=== PATIENT | female | born 1950 | race Caucasian/White ===

== ENCOUNTER 2019-07-03 21:26 | Observation (INO) ==
[2019-07-03 22:26] LABS: BASO# 0.05 X1000 (0.0-0.2); BASO% 0.7 % (0.0-0.8); EOS# 0.36 X1000 (0.0-0.7); EOS% 5.2 % (0.0-10.0); HEMATOCRIT 41.7 % (37.0-47.0); HEMOGLOBIN 13.6 g/dL (12.0-16.0); IMM GRAN# 0.02 X1000 (0.0-0.04); IMM GRAN% 0.3 % (0.0-0.5); LYMPH% 34.5 % (20.5-51.1); MCH 30.4 PG (27-31); MCHC 32.6 g/dL (33-37); MCV 93.3 FL (81-99); MONO# 0.54 X1000 (0.11-0.59); MONO% 7.8 % (1.7-9.3); MPV 9.7 FL (7.4-10.4); NEUT# 3.58 X1000 (1.4-6.5); NEUT% 51.5 % (42.2-75.2); PLT 268 X1000 (130-400); RBC 4.47 XMIL (4.2-5.4); RDW 12.7 % (11.5-14.5); WBC 6.95 X1000 (4.8-10.8)
[2019-07-03 22:44] LABS: INR 0.91; PROTIME 12.7 Seconds (11.0-16.0)
[2019-07-03 22:52] LABS: AGAP 9; ALBUMIN 4.5 g/dL (3.5-5.0); ALKALINE PHOSPHATASE 72 U/L (32-104); BUN 11 mg/dL (8-22); CALCIUM 9.1 mg/dL (8.8-10.2); CHLORIDE 105 mmol/L (98-107); CK PROFILE 31 U/L (24-173); COSMO 283; CREATININE 0.8 mg/dL (0.5-0.9); ESTIMATED GFR > 60; GLUCOSE 101 mg/dL (70-104); GOT 14 U/L (10-30); GPT 8 U/L (10-36); POTASSIUM 4.2 mmol/L (3.5-5.1); SODIUM 142 mmol/L (136-145); TCO2 29 mmol/L (25-35); TOTAL PROTEIN 7.1 g/dL (6.3-8.3)
[2019-07-04] MEDS ORDERED: PROTONIX PO ONE (00:52)
[2019-07-04] MEDS ORDERED: PEPCID PO ONE (00:52)
[2019-07-04] MEDS ORDERED: LOVENOX 1 MG/KG SUBQ ONE (00:52)
[2019-07-04] MEDS ORDERED: LOVENOX ONE (01:46)
[2019-07-04] MEDS ORDERED: TYLENOL PO PRN (04:29)
[2019-07-04] MEDS ORDERED: DILAUDID IM PRN (04:29)
[2019-07-04] MEDS ORDERED: TORADOL IV PRN (04:29)
[2019-07-04] MEDS ORDERED: ZOFRAN IV PRN (04:29)
--- NOTE | 2019-07-04 08:13 | Diag Imaging Result Doc PS360 ---
EXAM: CHEST-2 VIEWS - 07/03/2019 HISTORY: cp TECHNIQUE: Chest two views COMPARISON: 10/01/2018 portable chest FINDINGS: Heart size appears the upper range of normal and stable. There are possible COPD changes with slightly hyperexpanded lungs. There is stable left upper lobe granuloma from old granulomatous disease. The lungs otherwise appear clear. There is no pleural effusion or pneumothorax identified. Central venous catheter remains in place. IMPRESSION: Possible COPD changes with slightly hyperexpanded lungs. No other evidence of acute disease. Electronically signed by Angel Zuniga 07/04/2019 8:11 AM
[2019-07-04] MEDS: XANAX PO SCH ×2 (15:07→22:54)
--- NOTE | 2019-07-04 16:12 | Vascular Study Report ---
EXAM: Venous U/S Bilateral Legs - 07/04/2019 HISTORY: CP, SOB, elevated d-dimer, h/o PE TECHNIQUE: Bilateral lower extremity Doppler venous ultrasound COMPARISON: 06/06/2017 FINDINGS: The deep veins of the bilateral lower extremities demonstrate flow and compressibility. There are no filling defects identified. IMPRESSION: No evidence of deep venous thrombosis in either lower extremity. Electronically signed by Angel Zuniga 07/04/2019 4:09 PM
--- NOTE | 2019-07-04 16:20 | HISTORY AND PHYSICAL ---
CHIEF COMPLAINT: Chest pain, shortness of breath, diaphoresis. HISTORY OF PRESENT ILLNESS: This is a 68-year-old female with a prior history of pulmonary embolus, colon and ovarian cancer, who presented to the emergency room complaining of chest pain. She stated the pain first appeared last night about 8 o'clock. It was a stabbing-type pain, she rated it a 10/10. She had some accompanying shortness of breath and diaphoresis. She went to bed, woke up again with the pain, this time she stated it radiated to her back and up into her jaw, therefore, she presented to the emergency room. She was given 3 nitroglycerin and an aspirin via EMS with no change in pain. On arrival to the emergency room, O2 saturation was 95% on 2 L nasal cannula. PAST MEDICAL HISTORY: 1. Colon cancer. 2. Ovarian cancer. 3. Hypertension. 4. Pulmonary embolus. PAST SURGICAL HISTORY: Appendectomy, cholecystectomy, prophylactic bilateral mastectomy, as well as hysterectomy. FAMILY HISTORY: Positive for hypertension. SOCIAL HISTORY: She continues to smoke about a pack a day. She denies any alcohol or illicit drug use. ALLERGIES: Sulfa, which causes swelling. HOME MEDICATIONS: A list will be obtained. REVIEW OF SYSTEMS: Review of systems is discussed with the patient with pertinent positives stated in the HPI. She denied any syncope or dizziness, palpitations, vomiting, any diarrhea, constipation, productive cough, any fevers or chills, black or bloody vomitus or stools. PHYSICAL EXAMINATION: GENERAL: This is a 68-year-old female, who is sitting up on the side of the bed in no distress. VITAL SIGNS: Blood pressure is 160/70 with a heart rate of 59, respirations are 18, temperature is 98.7 degrees with O2 saturations 98% on 2 L nasal cannula. EYES: Pupils are equal, round and reactive to light. EOMs are intact. Sclera are anicteric. HEENT: Head is normocephalic, atraumatic. Mucous membranes are moist. NECK: Supple with trachea midline. No JVD. CARDIOVASCULAR: Regular rate and rhythm. S1 and S2 are appreciated. She has no lower extremity edema. She denies calf tenderness. Peripheral pulses are palpable x4 extremities. PULMONARY: Breath sounds are clear. No increased work of breathing noted. Chest rises and falls symmetric with respiration. Chest wall is nontender to palpation. GASTROINTESTINAL: Abdomen is soft, nontender, nondistended with bowel sounds in all 4 quadrants. NEUROLOGIC: She is alert and oriented x3. SKIN: Warm and dry. LABORATORY: WBC is 6.9 with hemoglobin 13.6, hematocrit 41.7, and platelets of 268,000. D-dimer is 0.56. Sodium 142, potassium 4.2, BUN 11, creatinine 0.8, with a glucose of 101. Troponins have been less than 6 on 3 occasions. Chest x-ray revealed possible COPD changes with slightly hyperexpanded lungs. No evidence of acute disease. ASSESSMENT AND PLAN: 1. Chest pain. Will continue telemetry, continue to trend troponin. 2. Elevated D-dimer. In the setting of the patient having a prior pulmonary embolus with a history of cancer, will obtain a bilateral lower extremity Doppler as well as a CTA pulmonary. Of note, the patient has been off anticoagulation for quite some time. 3. Hypertension. Will continue to trend vital signs and continue home medications. 4. Continued nicotine abuse. I did discuss with the patient the perils of continuing smoking. She will be given written materials. 5. Plan was discussed with Dr. Lozano. Further treatments pending hospital course. Dictated by JOSÉ ANTONIO Montoya for Yrn Lozano MD cc: JOSÉ ANTONIO Montoya MD
[2019-07-04] MEDS: INDERAL PO SCH (20:48)
[2019-07-04] MEDS ORDERED: SEROQUEL PO SCH (21:00)
[2019-07-04] MEDS ORDERED: REMERON SOLTAB PO SCH (21:00)
--- NOTE | 2019-07-05 01:47 | HISTORY AND PHYSICAL ---
ADDENDUM: The patient is a 68-year-old female who presented to the emergency department with chest pain this morning that was initially 10/10. Currently appears resolved. Does have a history of pulmonary emboli. Had a CTA done a week ago. Was having no shortness of breath, no chest pains, no palpitations and no current symptoms. The patient has a known history of hypertension as well as colon cancer and ovarian cancer. Does have an elevated D-dimer although had CT just recently that was before her symptoms started. Therefore, unfortunately, I do feel as though we need to repeat the CTA to rule out emboli. The patient and daughter understand and are ready to continue. cc: Yrn Lozano MD
[2019-07-05 05:36] VITALS: BP 114/57
[2019-07-05] MEDS: XANAX PO SCH ×2 (06:33→14:39)
[2019-07-05] MEDS ORDERED: PROTONIX PO SCH (07:00)
[2019-07-05] MEDS: INDERAL PO SCH (10:11)
--- NOTE | 2019-07-05 13:51 | Diag Imaging Result Doc PS360 ---
EXAM: CT ANGIOGRM PULMONARY ARTERIES INDICATION: h/o PE, elevated ddimer, CP,SOB TECHNIQUE: This exam was performed using automated exposure control, adjustment of mA or kV according to patient size, and/or use of iterative reconstruction technique. COMPARISON: 06/28/2019 FINDINGS: There is no evidence of pulmonary embolism. There is no evidence of aortic dissection or aneurysm. There is no cardiomegaly. There are a few calcified left hilar lymph nodes indicating prior granulomatous disease. There is no evidence of significant mediastinal or hilar lymphadenopathy. There is a left upper lobe calcified granuloma. There are a few scattered tiny noncalcified nodules in both lungs. The largest is seen in the right middle lobe on image 58 of series 5 measuring 4.4 mm. It is stable. This statistically most likely represent noncalcified granulomata. There is mild paraseptal emphysema that is stable. There is very mild and subtle groundglass opacity in the right lower lobe superiorly on image 40 of series 5 as well as fine nodularity. This is stable. It suggests nonspecific very mild pneumonitis. No new airspace consolidations are appreciated. There is no pleural fluid collection and no pneumothorax. IMPRESSION: No evidence of pulmonary embolism. Stable CT chest, otherwise. Electronically signed by Yuval Costello 07/05/2019 1:49 PM
--- NOTE | 2019-07-06 02:42 | DISCHARGE SUMMARY ---
ADMISSION DATE: 07/04/2019 DISCHARGE DATE: 07/05/2019 ADDENDUM: Patient seen and examined by myself. Full note dictated and discussed with nurse practitioner. Patient presented to the hospital with chest pain. This resolved. She did have a stress test within the last 6 months that was normal. She has an elevated D-dimer that was negative for pulmonary emboli or lower extremity DVT. Does have mild pneumonitis on exam. Overall, she is better and therefore will be discharged home. cc: Yrn Lozano MD
--- NOTE | 2019-07-06 04:46 | DISCHARGE SUMMARY ---
ADMISSION DATE: 07/04/2019 DISCHARGE DATE: 07/05/2019 DIAGNOSES: 1. Chest pain, resolved with troponins less than 6 x5. 2. Elevated D-dimer with a CTA pulmonary negative for pulmonary embolus and bilateral lower extremity Doppler negative for deep venous thrombosis. 3. Hypertension. 4. Continued nicotine abuse. DIAGNOSTICS: 1. Chest x-ray revealed COPD with slight hyperexpanded lungs. No evidence of acute disease. 2. Bilateral lower extremity Doppler, no evidence of DVT in either lower extremity. 3. Pulmonary arteriogram revealed no evidence of pulmonary embolism. HOSPITAL COURSE: Ms. Garcia presented to the emergency room complaining of chest pain, shortness of breath and diaphoresis which has resolved. She was ruled out by EKG and troponins. She was found to have an elevated D-dimer. CTA pulmonary and DVT were both performed and they were negative for pulmonary embolus or lower extremity Doppler. Her chest pain resolved and did not recur. DISCHARGE VITAL SIGNS: Blood pressure is 114/57 with heart rate 57, respirations 18, temperature 97.3 degrees oral with O2 saturations that are 97% on room air. DISCHARGE PHYSICAL EXAMINATION: Cardiovascular: Regular rate and rhythm. S1 and S2 appreciated. Pulmonary: Breath sounds are clear with no increased work of breathing noted. Chest rises and falls symmetric with respiration. Chest wall is nontender to palpation. Gastrointestinal: Abdomen is soft, nontender, nondistended with bowel sounds in all 4 quadrants. Neurologic: Alert and oriented x3. DISCHARGE MEDICATIONS: 1. Xanax 0.5 p.o. t.i.d. 2. Trazodone 100 mg at bedtime. 3. Seroquel 50 mg p.o. at bedtime. 4. Propranolol 40 mg p.o. at bedtime. 5. Pantoprazole daily. 6. Remeron 30 mg daily. 7. Letrozole 2.5 mg daily. 8. Requip 2 mg p.o. at bedtime. FOLLOWUP: Dr. Santi Ramsey. She needs to call Monday to schedule an appointment to be seen in the next 1 to 2 weeks, sooner if needed. She was instructed to call to be seen sooner or return to the emergency room for any recurring chest pain, any syncope, dizziness, any shortness of breath, cough, temperature greater than 101, any nausea, vomiting, diarrhea, constipation, black or bloody vomitus or stools or for any questions or concerns that she may have. She is being discharged home in stable condition with family members. TIME: This is a greater than 30 minute discharge. Dictated by JOSÉ ANTONIO Montoya for Yrn Lozano MD cc: JOSÉ ANTONIO Montoya MD
== END 2019-07-05 18:33 | disposition home or self-care (01) ==
LOC: P.ED 21:26 → P.EDIPHOLD 21:26 → P.MEDSURG 21:26
PROVIDERS: ATTEND Family Medicine